=== PATIENT | female | born 1955 | race Caucasian/White ===

== ENCOUNTER 2017-04-28 04:13 | Emergency (ER) | payer OTHER ==
[~2017-04-28 04:13] MED LIST: FLUO40CA PO; METO50TA PO; PREM.625 PO
[2017-04-28 04:27] VITALS: BP 180/80; PULSE 72; RESP 18; TEMP 98.6; O2SAT 100
[2017-04-28] MEDS ORDERED: KETOROLAC TROMETHAMINE 30 MG/ML (IVP) VIAL IV PUSH ONE (04:30)
[2017-04-28] MEDS ORDERED: METHOCARBAMOL INJ 1,000 MG in SODIUM CHLOR 0.9% 250 ML INJ 250 ML IV ONE (04:30)
--- NOTE | 2017-04-28 04:32 | PD ---
HPI Chief Complaint: back pain Time Seen by Provider: 04:26 Travel History International Travel<30 days: No Contact w/Intl Traveler<30days: No History of Present Illness HPI Patient comes in complaining of left low lateral back pain that began shortly prior to arrival. Patient states she's been having some stiffness in her back over the past several days and when she rolled over in bed which causes pain to get worse. Describes pain as a spasming burning sensation that radiates into her hip. Patient denies any trauma, fever, IV drug use, loss or change in bowel or bladder, or abdominal pain. Patient denies doing anything for this prior to calling EMS. Patient received morphine in route by EMS seemed to help some. Patient reports something happen to her similar to this 3 months ago she felt secondary to power walking at that time. States that she got over it and this is the his first symptoms she has had since. PFSH Past Medical History Anxiety: Yes Depression: Yes Heart Rhythm Problems: Yes (SVT ) Cardiovascular Problems: Yes (SVT ) Diminished Hearing: No Past Surgical History Cardiac Surgery: Yes (ABLATION 1999) Social History Alcohol Use: Yes (2 GLASSES OF WINE DAILY ) Tobacco Use: No Substance Use: No Allergies-Medications (Allergen,Severity, Reaction): Coded Allergies: No Known Allergies (Unverified Adverse Reaction, Unknown, 04/28/17) Reported Meds & Prescriptions Reported Meds & Active Scripts Active Naprosyn (Naproxen) 500 Mg Tab 500 Mg PO Q12HR PRN Robaxin (Methocarbamol) 500 Mg Tab 500 Mg PO Q8HR PRN Reported Fluoxetine (Fluoxetine HCl) 40 Mg Cap 40 Cap PO DAILY Prempro Blister Pack (Estrogens Conj/Medroxyprogest Acet) 0.625-2.5 Mg Tab 1 Tab PO DAILY Review of Systems Except as stated in HPI: all other systems reviewed are Neg Physical Exam Narrative GENERAL: Well-developed, overly nourished, in no acute distress, and non-ill appearing. SKIN: Focused skin assessment warm and dry. HEAD: Atraumatic. Normocephalic. EYES: Pupils equal and round. EOMI. No scleral icterus. No injection or drainage. ENT: No nasal bleeding or discharge. Mucous membranes pink and moist. NECK: Trachea midline. Supple. No nuclear rigidity. CARDIOVASCULAR: Dorsal pulses 2+, equal, and intact bilaterally. RESPIRATORY: No accessory muscle use. No respiratory distress. GASTROINTESTINAL: Abdomen soft, non-tender, nondistended, and no guarding. Hepatic and splenic margins not palpable. No pulsatile mass. MUSCULOSKELETAL: No obvious deformities. No clubbing. No cyanosis. No edema. Full range of motion. No tenderness crepitus or midline lumbar spine. Patient reports tenderness to lateral lumbar spinal muscles on the left. Hip: FROM and equal BL with passive flexion, extension, Abduction, Adduction, and internal/ external rotation. Pulses equal BL distal to injury. Capillary refill less than 2 seconds distal to injury and equal BL. FROM distal to injury and equal BL. Strength distal to injury equal BL. NV intact distal to injury and equal BL. Plantar flexion and dorsal flexion equal BL. Dorsal pulses equal BL. Sensation equal BL 1st web space. NEUROLOGICAL: Awake and alert. No obvious cranial nerve deficits. Motor grossly within normal limits. Normal speech. PSYCHIATRIC: Appropriate mood and affect; insight and judgment normal. Data Data Last Documented VS Vital Signs Date Time Temp Pulse Resp B/P (MAP) Pulse Ox O2 Delivery O2 Flow Rate FiO2 04/28/17 04:27 98.6 72 18 180/80 (113) 100 Orders Orders Ketorolac Inj (Toradol Inj) (04/28/17 04:30) Methocarbamol Inj (Robaxin Inj) (04/28/17 04:30) Acetamin-Hydrocod 325-5 Mg ([place] 5-325 (04/28/17 06:15) Ed Discharge Order (04/28/17 06:44) [facility] Medical Decision Making Medical Screen Exam Complete: Yes Emergency Medical Condition: Yes Differential Diagnosis Fracture, strain, contusion, sciatica, muscle spasm, other Narrative Course The patient presented complaining of back pain. There was no history of recent fall or trauma. There was no evidence to support genitourinary etiology. There is also no evidence to suggest vascular pathology such as AAA dissection. No fevers or other evidence to suspect infectious processes, abscess, osteomyelitis etc. The patients neurological exam is normal with normal motor and sensory. There is no saddle paresthesias reported and no bowel or bladder incontinence or retention. I suspect the pain is mechanical in nature. Clinical suspicion, plan of care and management was discussed with the patient. The patient was instructed to follow up with their health care provider. The patient was also instructed to return if the pain worsened, changed, or developed weakness or bowel or bladder trouble. The patient agreed with plan. Patient in no obvious distress upon re-evaluation. Patient was asked if they wanted to speak to my attending, which the patient did not wish to do at this time. Any questions/concerns in reference to patient diagnosis/condition discussed and clarified prior to patient's discharge. Reinforced sheer importance of close follow up with patient's primary physician or primary care clinic. Instructed patient to return to ED immediately, if symptoms return/ worsen. Patient showed understanding of above instructions. Further instructions and recommendations were detailed in discharge paperwork. Patient ambulated without difficulty out of ED at discharge. Diagnosis Primary Impression: Low back pain Qualified Codes: M54.5 - Low back pain Referrals: [facility] Patient Instructions: Acute Low Back Pain (ED), General Instructions Additional Instructions: Follow-up with your primary care physician in 2-5 days for evaluation. Take all medication as prescribed. Return to the emergency department if symptoms get worse. Med/Other Pt SpecificInfo: Prescription(s) given Scripts Naproxen (Naprosyn) 500 Mg Tab 500 MG PO Q12HR Y for PAIN SCALE 1 TO 10, #10 TAB 0 Refills Prov: Shaila Aponte MD 04/28/17 Methocarbamol (Robaxin) 500 Mg Tab 500 MG PO Q8HR Y for MUSCLE PAIN, #12 TAB 0 Refills Prov: Shaila Aponte MD 04/28/17 Disposition: 01 DISCHARGE HOME Condition: Stable Elier Segura Apr 28, 2017 04:32
[2017-04-28] MEDS ORDERED: PREM.625 PO (04:36)
[2017-04-28] MEDS ORDERED: FLUO40CA PO (04:36)
[2017-04-28] MEDS ORDERED: NAPR500 PO (05:22)
[2017-04-28] MEDS ORDERED: ROBA500T PO (05:22)
[2017-04-28] MEDS ORDERED: ACETAMINOPHEN/HYDROcodone 325 MG/5 MG TAB PO ONE (06:15)
[2017-04-29] MEDS ORDERED: MOBI15TA PO (14:49)
[2017-04-29] MEDS ORDERED: NORC5TAB PO (14:49)
== END 2017-04-28 07:38 | disposition home or self-care (01) ==
LOC: NEPD 04:13
DX: M54.5 Low back pain (principal); Z86.79 Personal history of other diseases of the circulatory system; Z86.59 Personal history of other mental and behavioral disorders
CPT/HCPCS: 96365; 96366; 96375; 99284; J1885; J2800; J7050

== ENCOUNTER 2017-04-29 10:43 | Emergency (ER) | payer OTHER ==
[~2017-04-29] VITALS: Ht 162.6 cm; Wt 90.0 kg
[~2017-04-29 10:43] MED LIST changes: -METO50TA PO; +NAPR500 PO; +ROBA500T PO
[2017-04-29 10:44] VITALS: BP 140/74; PULSE 77; RESP 16; TEMP 97.7; O2SAT 97
[2017-04-29] MEDS ORDERED: SODIUM CHLOR 0.9% 1000 ML INJ 1,000 ML IV SCH (12:06)
[2017-04-29] MEDS ORDERED: SODIUM CHLORIDE 0.9% FLUSH 10 ML FLUSH IV FLUSH PRN (12:15)
[2017-04-29] MEDS ORDERED: ONDANSETRON HCL 4 MG/2 ML VIAL IVP ONE (12:15)
[2017-04-29] MEDS ORDERED: FAMOTIDINE 20 MG/2 ML VIAL IV PUSH ONE (12:15)
[2017-04-29] MEDS ORDERED: MORPHINE SULFATE 4 MG/ML INJ IV PUSH ONE (12:15)
--- NOTE | 2017-04-29 12:15 | PD ---
HPI Chief Complaint: Musculoskeletal Complaint Time Seen by Provider: 11:27 Travel History International Travel<30 days: No Contact w/Intl Traveler<30days: No Traveled to known affect area: No History of Present Illness HPI 61-year-old female complains of left flank pain, left-sided abdominal pain, left hip pain. Patient states that the symptoms started 2 days ago. Patient states that the pain is sharp pain cramping pain started the left flank area with radiation to left side abdomen. Patient states that she also has pain posterior aspect the left hip radiation to the left leg. Patient denies any nausea vomiting diarrhea. Patient denies any injury. Patient states the pain is worse with movement of left hip joint. Patient denies any fever chills. Patient denies any dysuria or frequency. Patient denies any vaginal discharge or bleeding. On a scale of 1-10 the pain is a 10. PFSH Past Medical History Anxiety: Yes Depression: Yes Heart Rhythm Problems: Yes (SVT ) Cardiovascular Problems: Yes (SVT ) Diminished Hearing: No ?: Not Past Surgical History Cardiac Surgery: Yes (ABLATION 1999) Social History Alcohol Use: Yes (2 GLASSES OF WINE DAILY ) Tobacco Use: No Substance Use: No Allergies-Medications (Allergen,Severity, Reaction): Coded Allergies: No Known Allergies (Unverified Adverse Reaction, Unknown, 04/28/17) Reported Meds & Prescriptions Reported Meds & Active Scripts Active Naprosyn (Naproxen) 500 Mg Tab 500 Mg PO Q12HR PRN Robaxin (Methocarbamol) 500 Mg Tab 500 Mg PO Q8HR PRN Reported Fluoxetine (Fluoxetine HCl) 40 Mg Cap 40 Cap PO DAILY Prempro Blister Pack (Estrogens Conj/Medroxyprogest Acet) 0.625-2.5 Mg Tab 1 Tab PO DAILY Review of Systems General / Constitutional: No: Fever Eyes: No: Visual changes HENT: No: Headaches Cardiovascular: No: Chest Pain or Discomfort Respiratory: No: Shortness of Breath Gastrointestinal: Positive: Abdominal Pain Genitourinary: No: Dysuria Musculoskeletal: No: Pain Skin: No Rash Neurologic: No: Weakness Psychiatric: No: Depression Endocrine: No: Polydipsia Hematologic/Lymphatic: No: Easy Bruising Physical Exam Narrative GENERAL: Well-nourished, well-developed patient. SKIN: Focused skin assessment warm/dry. HEAD: Normocephalic. EYES: No scleral icterus. No injection or drainage. NECK: Supple, trachea midline. No JVD or lymphadenopathy. CARDIOVASCULAR: Regular rate and rhythm without murmurs, gallops, or rubs. RESPIRATORY: Breath sounds equal bilaterally. No accessory muscle use. GASTROINTESTINAL: Abdomen soft, nondistended. Patient has moderate tenderness on palpation left mid abdomen. No rebound tenderness. No mass. MUSCULOSKELETAL: No cyanosis, or edema. BACK: Patient has moderate tenderness of patient left low lumbar area without obvious deformity. No CVA tenderness. Negative straight leg raising. Neurologic exam normal. Data Data Last Documented VS Vital Signs Date Time Temp Pulse Resp B/P (MAP) Pulse Ox O2 Delivery O2 Flow Rate FiO2 04/29/17 12:45 100 04/29/17 10:44 97.7 77 16 Orders Orders Complete Blood Count With Diff (04/29/17 12:06) Comprehensive Metabolic Panel (04/29/17 12:06) Lipase (04/29/17 12:06) Prothrombin Time / Inr (Pt) (04/29/17 12:06) Act Partial Throm Time (Ptt) (04/29/17 12:06) Urinalysis - C+S If Indicated (04/29/17 12:06) Ct Abd/Pel W Iv Contrast(Rout) (04/29/17 12:06) Iv Access Insert/Monitor (04/29/17 12:06) Ecg Monitoring (04/29/17 12:06) Oximetry (04/29/17 12:06) Morphine Inj (Morphine Inj) (04/29/17 12:15) Ondansetron Inj (Zofran Inj) (04/29/17 12:15) Sodium Chlor 0.9% 1000 Ml Inj (Ns 1000 M (04/29/17 12:06) Sodium Chloride 0.9% Flush (Ns Flush) (04/29/17 12:15) Famotidine Inj (Pepcid Inj) (04/29/17 12:15) Ct Lumb Spine W/O Contrast (04/29/17 12:06) Iohexol 350 Inj (Omnipaque 350 Inj) (04/29/17 13:48) Labs Laboratory Tests Test 04/29/17 12:20 04/29/17 12:26 04/29/17 12:50 Blood Urea Nitrogen 11 MG/DL Creatinine 0.61 MG/DL Random Glucose 97 MG/DL Total Protein 6.6 GM/DL Albumin 3.0 GM/DL Calcium Level 8.1 MG/DL Alkaline Phosphatase 71 U/L Aspartate Amino Transf (AST/SGOT) 14 U/L Alanine Aminotransferase (ALT/SGPT) 23 U/L Total Bilirubin 0.3 MG/DL Sodium Level 138 MEQ/L Potassium Level 4.0 MEQ/L Chloride Level 102 MEQ/L Carbon Dioxide Level 28.8 MEQ/L Anion Gap 7 MEQ/L Estimat Glomerular Filtration Rate 99 ML/MIN Lipase 93 U/L White Blood Count 8.4 TH/MM3 Red Blood Count 3.61 MIL/MM3 Hemoglobin 11.9 GM/DL Hematocrit 33.2 % Mean Corpuscular Volume 91.9 FL Mean Corpuscular Hemoglobin 32.9 PG Mean Corpuscular Hemoglobin Concent 35.8 % Red Cell Distribution Width 13.2 % Platelet Count 243 TH/MM3 Mean Platelet Volume 9.5 FL Neutrophils (%) (Auto) 65.9 % Lymphocytes (%) (Auto) 26.3 % Monocytes (%) (Auto) 6.3 % Eosinophils (%) (Auto) 0.8 % Basophils (%) (Auto) 0.7 % Neutrophils # (Auto) 5.6 TH/MM3 Lymphocytes # (Auto) 2.2 TH/MM3 Monocytes # (Auto) 0.5 TH/MM3 Eosinophils # (Auto) 0.1 TH/MM3 Basophils # (Auto) 0.1 TH/MM3 CBC Comment DIFF FINAL Differential Comment Prothrombin Time 10.2 SEC Prothromb Time International Ratio 0.9 RATIO Activated Partial Thromboplast Time 26.4 SEC Urine Color YELLOW Urine Turbidity CLEAR Urine pH 6.0 Urine Specific [place] 1.013 Urine Protein NEG mg/dL Urine Glucose (UA) NEG mg/dL Urine Ketones NEG mg/dL Urine Occult Blood NEG Urine Nitrite NEG Urine Bilirubin NEG Urine Urobilinogen LESS THAN 2.0 MG/DL Urine Leukocyte Esterase NEG Urine RBC 1 /hpf Urine WBC 2 /hpf Urine Squamous Epithelial Cells 2 /hpf Urine Bacteria FEW /hpf Urine Mucus FEW /lpf Microscopic Urinalysis Comment CULT NOT INDICATED MDM Medical Decision Making Medical Screen Exam Complete: Yes Emergency Medical Condition: Yes Interpretation(s) Last Impressions Lumbar Spine CT 04/29/17 1206 Signed Impressions: Service Date/Time: Saturday, April 29, 2017 13:43 - CONCLUSION: 1. Moderate degenerative disc disease at multiple levels. 2. Subtle to right-sided disc bulge/extrusion crush of the right L5 and right S1 roots. Moderate facet disease. Atif Javed MD FACR 1436 PM. CBC within normal limit. CMP within normal limit. UA negative. Differential Diagnosis Differential diagnosis including musculoskeletal, nephrolithiasis, pyelonephritis, colitis, ovarian cyst, ovarian torsion, UTI, pyelonephritis Narrative Course 61-year-old female with left-sided abdominal pain, left flank pain, posteriorly left hip pain. Diagnosis Primary Impression: Abdominal pain Qualified Codes: R10.9 - Unspecified abdominal pain Additional Impression: Radiculopathy Qualified Codes: M54.16 - Radiculopathy, lumbar region Patient Instructions: General Instructions Additional Instructions: Take medications as needed for pain. Follow-up with personal physician. Return if persistent problem or worse. Med/Other Pt SpecificInfo: Prescription(s) given Scripts Hydrocodone-Acetaminophen ([place]) 5-325 mg Tab 1 TAB PO Q6H Y for PAIN, #20 TAB 0 Refills Prov: Ryan Kim MD 04/29/17 Meloxicam (Mobic) 15 Mg Tab 15 MG PO DAILY for Pain, #30 TAB 0 Refills Prov: Ryan Kim MD 04/29/17 Disposition: 01 DISCHARGE HOME Condition: Stable Ryan Kim MD Apr 29, 2017 12:15
[2017-04-29 12:45] VITALS: O2SAT 100
[2017-04-29 12:45] LABS: AUTOMATED NEUTROPHIL # 5.6 TH/MM3 (1.8-7.7); BASOPHIL # 0.1 TH/MM3 (0-0.2); BASOPHIL % 0.7 % (0.0-2.0); EOSINOPHIL # 0.1 TH/MM3 (0-0.4); EOSINOPHIL % 0.8 % (0.0-4.0); HEMATOCRIT 33.2 % (35.0-46.0); HEMO FLAGS DIFF FINAL; LYMPH % 26.3 % (9.0-44.0); LYMPHOCYTE # 2.2 TH/MM3 (1.0-4.8); MEAN CELL VOLUME 91.9 FL (80.0-100.0); MEAN CORPUSCULAR HEMOGLOBIN 32.9 PG (27.0-34.0); MEAN CORPUSCULAR HGB CONC 35.8 % (32.0-36.0); MONO % 6.3 % (0.0-8.0); NEUT % 65.9 % (16.0-70.0); PLATELET COUNT 243 TH/MM3 (150-450); RED BLOOD COUNT 3.61 MIL/MM3 (4.00-5.30); RED CELL DISTRIBUTION WIDTH 13.2 % (11.6-17.2); WHITE BLOOD COUNT 8.4 TH/MM3 (4.0-11.0)
[2017-04-29 12:54] LABS: APTT (PATIENT) 26.4 SEC (24.3-30.1); INTERNATIONAL NORMALIZED RATIO 0.9 RATIO; PROTHROMBIN TIME - PATIENT 10.2 SEC (9.8-11.6)
[2017-04-29 13:10] LABS: ALT (GPT) 23 U/L (10-53); ANION GAP 7 MEQ/L (5-15); AST (GOT) 14 U/L (15-37); BICARBONATE 28.8 MEQ/L (21.0-32.0); BLOOD UREA NITROGEN 11 MG/DL (7-18); CHLORIDE 102 MEQ/L (98-107); GLOMERULAR FILTRATION RATE 99 ML/MIN (>89); SODIUM (NA) 138 MEQ/L (136-145)
[2017-04-29 13:12] LABS: ALKALINE PHOSPHATASE 71 U/L (45-117); TOTAL BILIRUBIN ADULT 0.3 MG/DL (0.2-1.0)
[2017-04-29 13:23] LABS: BACTERIA, URINE FEW /hpf; BLOOD, URINE NEG (NEG); COMMENT (UR) CULT NOT INDICATED; CULTURE IF INDICATED CULT NOT INDICATED; GLUCOSE,URINE NEG (NEG); KETONE, URINE NEG (NEG); MUCUS URINE FEW /lpf (OCC); NITRITE,URINE NEG (NEG); SQUAMOUS EPITHELIAL CELL URINE 2 /hpf (0-5); URINE COLOR YELLOW (YELLW/STRAW)
[2017-04-29] MEDS ORDERED: IOHEXOL 350 MG/ML 10 ML VIAL (for RAD DIAG) IVCONTRAST ONE (13:48)
--- NOTE | 2017-04-29 14:22 | RADRPT ---
EXAM DATE/TIME: 04/29/2017 13:43 [facility] COMPARISON: No previous studies available for comparison. INDICATIONS : Left sided abdominal and back pain IV CONTRAST: 96 cc Omnipaque 350 (iohexol) IV ORAL CONTRAST: No oral contrast ingested. RADIATION DOSE: 12.40 CTDIvol (mGy) MEDICAL HISTORY : None SURGICAL HISTORY : None. ENCOUNTER: Initial ACUITY: 3 days PAIN SCALE: 5/10 LOCATION: Left abdomen TECHNIQUE: Volumetric scanning of the abdomen and pelvis was performed. Using automated exposure control and ad justment of the mA and/or kV according to patient size, radiation dose was kept as low as reasonably achievable to obtain optimal diagnostic quality images. DICOM format image data is available electro nically for review and comparison. FINDINGS: Tiny irregular nodules are seen in both the right and left lung base, indeterminate on this exam. 3 cm mass dome of the liver probably hemangioma. The liver, spleen, pancreas and adrenals unremarkable There is symmetric renal function There is no ascites. There is no adenopathy. Pelvis enlarged fibroid uterus is noted. There is no free fluid. CONCLUSIO: 3 cm enhancing mass at dome of the liver, probably hemangioma Tiny nonspecific nodules in both lung bases I do not see an etiology for the left flank pain. Atif Javed MD FACR on April 29, 2017 at 14:16 Board Certified Radiologist. This report was verified electronically.
--- NOTE | 2017-04-29 14:25 | RADRPT ---
EXAM DATE/TIME: 04/29/2017 13:43 [facility] COMPARISON: No previous studies available for comparison. INDICATIONS : Left sided abdomen and back pain RADIATION DOSE: ; Reconstructed from previous dataset, no dose MEDICAL HISTORY : None SURGICAL HISTORY : None. ENCOUNTER: Initial ACUITY: 3 days PAIN SCALE: 4/10 LOCATION: [place] TECHNIQUE: Volumetric scanning of the lumbar spine was performed. Multiplanar reconstructions in the sagittal, coronal and oblique axial planes were performed. Using automated exposure control and adjustment of the mA and/or kV according to patient size, radiation dose was kept as low as reasonably achievable t o obtain optimal diagnostic quality images. DICOM format image data is available electronically for review and comparison. FINDINGS: VERTEBRAE: Normal vertebral body height. Bone island T12 ALIGNMENT: No evidence of subluxation. T12-L1: Mild bulging eccentric to the right with minimal encroachment of neural foramen. L1-L2: The thecal sac has a normal diameter. No evidence of disc bulge or protrusion. The neural foramina are patent bilaterally. L2-L3: Minimal bulging present with mild facet disease. L3-L4: Moderate degenerative changes in the facets. Minimal disc bulging evident. There is no significant spinal stenosis. L4-L5: Mild disc bulging evident with moderate degenerative change in the facets. L5-S1: Central to right-sided disc bulge impression the right L5 and the right S1 roots. Mild facet disease . Degenerative changes both SI joints. CONCLUSION: 1. Moderate degenerative disc disease at multiple levels. 2. Subtle to right-sided disc bulge/extrusion crush of the right L5 and right S1 roots. Moderate fac et disease. Atif Javed MD FACR on April 29, 2017 at 14:20 Board Certified Radiologist. This report was verified electronically.
[2017-04-29] MEDS ORDERED: MOBI15TA PO (14:49)
[2017-04-29] MEDS ORDERED: NORC5TAB PO (14:49)
[2017-04-29 15:13] VITALS: BP 135/72
== END 2017-04-29 15:16 | disposition home or self-care (01) ==
LOC: NEPD 10:43
DX: R10.9 Unspecified abdominal pain (principal); M54.16 Radiculopathy, lumbar region; M25.552 Pain in left hip; M51.37 Other intervertebral disc degeneration, lumbosacral region; F41.9 Anxiety disorder, unspecified; F32.9 Major depressive disorder, single episode, unspecified; I47.1 Supraventricular tachycardia
CPT/HCPCS: 72131; 74177; 80053; 81001; 83690; 85025; 85610; 85730; 96374; 96375; 99285; J2270; J2405; J7030; Q9967